=== PATIENT | male | born 1955 | race Caucasian/White ===

== ENCOUNTER 2017-04-30 06:23 | Observation (INO) | payer OTHER ==
[2017-04-30] MEDS ORDERED: ONDANSETRON HCL/PF 4 MG/ 2ML VIAL IVP ONE (06:48)
[2017-04-30] MEDS ORDERED: fentaNYL CITRATE/PF 100 MCG/ 2ML AMP IVP ONE ×2 (06:49→07:15)
[2017-04-30] MEDS ORDERED: 0.9 % SODIUM CHLORIDE 1,000 ML IV ONE ×2 (06:53→09:26)
[2017-04-30 06:54] LABS: BASOPHILS % 0.6 (0.0-1.5); EOSINOPHILS % 2.9 % (0.0-6.8); MEAN CORPUSCULAR HEMOGLOBIN 32.1 pg (28.0-34.0); MEAN CORPUSCULAR VOLUME 95.4 fl (80.0-100.0); MONOCYTES % 7.7 % (0.0-11.0)
[2017-04-30] MEDS ORDERED: 0.9 % SODIUM CHLORIDE 1,000 ML IV SCH (07:00)
[2017-04-30 07:07] LABS: eGFR (African) > 60; eGFR (Non-African) > 60
[2017-04-30] MEDS ORDERED: 0.9 % SODIUM CHLORIDE 50 ML IV ONE (07:37)
[2017-04-30] MEDS ORDERED: PROMETHAZINE HCL 25 MG/ML VIAL ONE (07:37)
[2017-04-30] MEDS ORDERED: PROMETHAZINE HCL 25 MG in 0.9 % SODIUM CHLORIDE 50 ML IV ONE (07:44)
[2017-04-30] MEDS ORDERED: MORPHINE SULFATE 2 MG/ML DISP.SYRIN IVP ONE (07:50)
[2017-04-30] MEDS ORDERED: MORPHINE SULFATE 2 MG/ML DISP.SYRIN ONE (07:51)
[2017-04-30] MEDS ORDERED: KETOROLAC TROMETHAMINE 30 MG/1ML VIAL ONE (07:56)
--- NOTE | 2017-04-30 08:02 | Diagnostic Imaging Report ---
[facility] [address] [facility] [address] [place], [place]. [address] Report Submission Date: Apr 30, 2017 7:51:21 AM CDT Patient Study Name: MANFRED CARRASQUILLO Date: Apr 30, 2017 7:26:32 AM CDT Modality Type: CT\SR Gender: M Description: CT ABD & PELVIS W/ CON : 53 Institution: [facility] Physician: ARMIDA WALL CT abdomen and pelvis with contrast Date of study: April 30, 2017. CLINICAL HISTORY: PT STATES PAIN IN RIGHT UPPER QUADRANT SINCE THIS MORNING. NAUSEA. STATES NO SURGICAL HISTORY. (Hx) / RUQ PAIN (DICOM Hx) TECHNIQUE: 1.3 mm contiguous axial images of the abdomen and pelvis with IV contrast. With; 90cc OMNIPAQUE FINDINGS: The lung bases are clear. Abdomen: A small hiatal hernia is noted. There are multiple hepatic cysts. Lateral left hepatic lobe cysts measure 2.2 cm x 3.5 cm. A right hepatic lobe cyst measures 1.3 cm. The pancreas and spleen are normal in appearance. The gallbladder is unremarkable. The kidneys enhance appropriately and symmetrically. There is mild right hydronephrosis and hydroureter. Right perinephric stranding is present. The aorta is normal in caliber. The small bowel is nondistended. There is no evidence of free air or free fluid. A fat containing umbilical hernia is noted. Pelvis: A 6 mm distal right ureteral calculus is present in the mid pelvis. Scattered colonic diverticulosis is evident. The bladder is normal. There is no evidence of free air or free fluid. The sigmoid colon and rectum are normal. The remaining pelvic structures are within normal limits and the bones of the pelvis are intact. A fat containing left inguinal hernia is noted. Slight disc bulging is present at L2/L3, L3/L4, L4/L5 and L5/S1. IMPRESSION: Mild right hydronephrosis and hydroureter with 6 mm distal right ureteral calculus in the mid pelvis. Hepatic cysts. Fat containing umbilical hernia. Electronically signed on Apr 30, 2017 7:51:21 AM CDT by: Marcela LOCKWOOD
[2017-04-30] MEDS ORDERED: KETOROLAC TROMETHAMINE 30 MG/1ML VIAL IVP ONE (08:20)
--- NOTE | 2017-04-30 08:29 | ED Physician Documentation ---
General Adult - HISTORIAN Historian: patient - HPI Stated Complaint: rt lower abd pain Chief Complaint: Abdominal Pain Onset: hours Timing: still present Severity: moderate Further Comments: yes (Pt is a 61 you male with RLQ abd pain that started yesterday. Pt has had n/v. No fever. Pt reports normal bm's and normal voids. PMHx inguinal hernia repair and prostate problems.) - ROS CONST: no problems EYES/ENT: none CVS/RESP: none GI/: abdominal pain (RLQ), vomiting, nausea MS/SKIN/LYMPH: none - PAST HX Past History: other (inguinal hernia repair, prostate problems.) Allergies/Adverse Reactions: Allergies Allergy/AdvReac Type Severity Reaction Status Date / Time No Known Drug Allergies Allergy Verified 04/30/17 06:38 - SOCIAL HX Smoking History: non-smoker - FAMILY HX Family History: No - VITAL SIGNS Vital Signs: Vital Signs Temp Pulse Resp BP Pulse Ox 97.6 F 61 16 172/93 99 04/30/17 06:24 04/30/17 06:24 04/30/17 06:24 04/30/17 06:24 04/30/17 06:24 - REVIEWED ASSESSMENTS Nursing Assessment Reviewed: Yes Vitals Reviewed: Yes Progress - Progress Progress: CT abd/pelvis w contrast: Mild right hydronephrosis and hydroureter with 6 mm distal right ureteral calculus in the mid pelvis. Pt received Fentanyl 50 mcg IV x 2 Zofran 4 mg IV 1 L NS IVF bolus, then 100 cc/hr. Morphine 2 mg IV Toradol 15 mg IV Admit to obs, Dr. Keen, for pain control. Will continue IVF, Morphine 2 mg q4h prn, Zofran 4 mg q 6 h, Flomax 0.4 mg po qd. Will not start abx until after U/ A is obtained. ED Results Lab/Radiology - Lab Results Lab Results: Lab Results 04/30/17 04/30/17 06:50 06:50 WBC 7.62 K/ul K/ul (4.00-12.00) RBC 4.77 M/ul M/ul (3.90-5.20) Hgb 15.3 g/dL g/dL (12.0-18.0) Hct 45.5 % % (37.0-53.0) MCV 95.4 fl fl (80.0-100.0) MCH 32.1 pg pg (28.0-34.0) MCHC 33.7 g/dL g/dL (30.0-36.0) RDW 12.8 % % (11.3-14.3) Plt Count 186 K/mm3 K/mm3 (130-400) Neut % (Auto) 65.3 % % (39.0-79.0) Lymph % (Auto) 20.9 % % (16.0-50.0) [place] % (Auto) 7.7 % % (0.0-11.0) Eos % (Auto) 2.9 % % (0.0-6.8) Baso % (Auto) 0.6 (0.0-1.5) Neut # 5.0 # k/uL # k/uL (1.4-7.7) Lymph # 1.6 # k/uL # k/uL (0.6-4.0) [place] # 0.6 # k/uL # k/uL (0.0-0.9) Eos # 0.2 # k/uL # k/uL (0.0-0.6) Baso # 0.0 # k/uL # k/uL (0.0-0.5) Reactive Lymphs % 2.6 % % (0.0-5.0) Reactive Lymphs # 0.2 # k/uL # k/uL (0.0-0.8) Sodium 140 mmol/L mmol/L (136-145) Potassium 4.0 mmol/L mmol/L (3.5-5.0) Chloride 108 mmol/L mmol/L (98-110) Carbon Dioxide 26 mmol/L mmol/L (20-32) BUN 17 mg/dL mg/dL (10-26) Creatinine 0.9 mg/dL mg/dL (0.4-1.5) Estimated Creat Clear 104 Est GFR ( Amer) > 60 (60 - ) Est GFR (Non-Af Amer) > 60 (60 - ) Glucose 146 mg/dL H mg/dL (70-99) Calcium 10.1 mg/dL mg/dL (8.5-10.5) Total Bilirubin 1.0 mg/dL mg/dL (0.2-1.2) AST 20 U/L U/L (0-41) ALT 16 U/L U/L (0-45) Alkaline Phosphatase 59 U/L U/L (46-116) Total Protein 7.0 g/dL g/dL (6.0-8.5) Albumin 4.5 g/dL g/dL (3.0-5.5) Amylase 62 U/L U/L (20-104) - Orders Orders: ED Orders Category Date Time Status CT ABD & PELVIS W/ CON Stat Exams 04/30/17 Ordered AMYLASE Routine Lab 04/30/17 06:50 Completed CBC/PLATELET/DIFF Routine Lab 04/30/17 06:50 Completed CMP Routine Lab 04/30/17 06:50 Completed URINALYSIS Routine Lab 04/30/17 Uncollected 0.9 % Sodium Chloride [Normal Saline] 1,000 ml Med 04/30/17 07:00 Ordered IV Q10H Ondansetron HCl/Pf [Zofran 4 mg/2 ml] Med 04/30/17 06:48 Discontinued 4 mg IVP NOW ONE fentaNYL CITRATE/PF [Duragesic] Med 04/30/17 06:49 Discontinued 50 mcg IVP NOW ONE General Adult Physical Exam - PHYSICAL EXAM GENERAL APPEARANCE: moderate distress EENT: pharynx normal NECK: normal inspection, supple RESPIRATORY: no resp distress, chest non-tender, breath sounds normal CVS: reg rate & rhythm, heart sounds normal ABDOMEN: soft, normal bowel sounds, no distension, tenderness (RLQ tenderness with guarding) BACK: normal inspection, CVA tenderness (R) SKIN: warm/dry, normal color EXTREMITIES: non-tender, normal range of motion, no evidence of injury NEURO: oriented X3, motor nml, sensation nml Discharge Clincal Impression: Kidney stone on right side Referrals: Art Keen MD [Primary Care Provider] - Condition: Stable Disposition: ADMITTED INPATIENT Decision to Admit: [id number] Decision Time: 08:05
[2017-04-30] MEDS ORDERED: TAMSULOSIN HCL 0.4 MG CAP.ER.24H PO ONE (09:00)
[2017-04-30] MEDS ORDERED: SALINE FLUSH 10 ML DISP.SYRIN IVF ONE (09:35)
[2017-04-30] MEDS: FINASTERIDE 5 MG TABLET PO SCH (09:37)
[2017-04-30] MEDS: 0.9 % SODIUM CHLORIDE 1,000 ML IV SCH ×4 (09:39→20:01)
[2017-04-30] MEDS: MORPHINE SULFATE 2 MG/ML DISP.SYRIN IVP PRN ×2 (12:37→16:11)
[2017-04-30 14:46] VITALS: BMI 26.0
[2017-04-30] MEDS: ONDANSETRON HCL/PF 4 MG/ 2ML VIAL IVP PRN (15:57)
[2017-04-30] MEDS ORDERED: MORPHINE SULFATE 2 MG/ML DISP.SYRIN IVP SCH (20:00)
[2017-05-01] MEDS ORDERED: SALINE FLUSH 10 ML DISP.SYRIN IVF ONE ×3 (01:54→04:42)
[2017-05-01] MEDS: MORPHINE SULFATE 2 MG/ML DISP.SYRIN IVP PRN ×4 (02:02→11:16)
[2017-05-01] MEDS: ONDANSETRON HCL/PF 4 MG/ 2ML VIAL IVP PRN ×2 (05:00→11:12)
[2017-05-01] MEDS: 0.9 % SODIUM CHLORIDE 1,000 ML IV SCH (05:15)
[2017-05-01 05:41] LABS: APPEARANCE,URINE CLEAR (CLEAR); COLOR,URINE AMBER (YELLOW)
[2017-05-01 05:42] LABS: OCCULT BLOOD,URINE 3+ (NEGATIVE); PH URINE 6.5 (5.0 - 8.0); UROBILINOGEN URINE 0.2 Eu (0.2-1.0)
[2017-05-01] MEDS ORDERED: MORPHINE SULFATE 2 MG/ML DISP.SYRIN IVP ONE (06:42)
[2017-05-01] MEDS ORDERED: KETOROLAC TROMETHAMINE 30 MG/1ML VIAL ONE (07:40)
[2017-05-01] MEDS ORDERED: KETOROLAC TROMETHAMINE 30 MG/1ML VIAL IVP ONE (07:42)
--- NOTE | 2017-05-01 07:59 | ED Physician Documentation ---
Abdominal Pain - HISTORIAN Historian: patient - HPI Stated Complaint: right abd pain Chief Complaint: Abdominal Pain Additonal Information: Who approximately 24 hours prior to admission develop some right lower quadrant pain with radiation into the right mid abdominal area. Patient denied any precipitating factors that he is aware of. Patient denies any modifying factors associated with the pain. Initially the pain did tend to wax and wane however through the night patient develop more intense pain associated with nausea. Patient subsequently came to the ED for evaluation. Patient denies any abdominal surgery. Leighton Mejia met with two days prior to admission and was normal. Patient denies any medication melena her hematemesis. Patient is not had a fever chills. Patient denies any urinary frequency urgency. Urinary color has been normal. Patient denies any previous gallbladder problems. Patient has a CT scan done in the ED which did show a 6 mm stone in the distal ureter. Patient was subsequently admitted to the hospital for further care evaluation and pain management. Onset: days ago (0900 yesterday) Context: other (no precipitating factor). denies: out of country travel Quality: pain, aching, cramping Associated Symptoms: fever, nausea, vomiting. denies: chills Exacerbated by: movements. denies: food Relieved by: nothing Further Comments: no - ROS CONST: no problems GI/: denies: constipation, black stools, bloody urine, bloody stools, dark urine, problems urinating CVS/RESP: none EYES/ENT: none MS/SKIN/LYMPH: none NEURO/PSYCH: none - SOCIAL HX Smoking History: non-smoker Alcohol Use: none Drug Use: none - FAMILY HX Family History: no significant history - PAST HX Past History: none Surgeries/Procedures: other (herni) Immunizations: influenza, zostavax. denies: pneumovax Home Medications: Ambulatory Orders Medication Instructions Recorded Tamsulosin HCl [Flomax] 0.4 mg PO [id number] #14 cap.er.24h 05/01/17 Hydrocodone/Acetaminophen 1 each PO SEE.INSTRUCTIONS u2 05/05/17 [Hydrocodon-Acetaminoph 2.5-325] Allergies/Adverse Reactions: Allergies Allergy/AdvReac Type Severity Reaction Status Date / Time No Known Drug Allergies Allergy Verified 04/30/17 06:38 - VITAL SIGNS Vital Signs: Vital Signs Temp Pulse Resp BP Pulse Ox 97.9 F 51 L 16 125/71 97 05/01/17 10:58 05/01/17 10:58 05/01/17 10:58 05/01/17 10:58 05/01/17 10:58 - REVIEWED ASSESSMENTS Nursing Assessment Reviewed: Yes Vitals Reviewed: Yes ED Results Lab/Radiology - Lab Results Lab Results: Lab Results 04/30/17 04/30/17 06:50 06:50 WBC 7.62 K/ul K/ul (4.00-12.00) RBC 4.77 M/ul M/ul (3.90-5.20) Hgb 15.3 g/dL g/dL (12.0-18.0) Hct 45.5 % % (37.0-53.0) MCV 95.4 fl fl (80.0-100.0) MCH 32.1 pg pg (28.0-34.0) MCHC 33.7 g/dL g/dL (30.0-36.0) RDW 12.8 % % (11.3-14.3) Plt Count 186 K/mm3 K/mm3 (130-400) Neut % (Auto) 65.3 % % (39.0-79.0) Lymph % (Auto) 20.9 % % (16.0-50.0) [place] % (Auto) 7.7 % % (0.0-11.0) Eos % (Auto) 2.9 % % (0.0-6.8) Baso % (Auto) 0.6 (0.0-1.5) Neut # 5.0 # k/uL # k/uL (1.4-7.7) Lymph # 1.6 # k/uL # k/uL (0.6-4.0) [place] # 0.6 # k/uL # k/uL (0.0-0.9) Eos # 0.2 # k/uL # k/uL (0.0-0.6) Baso # 0.0 # k/uL # k/uL (0.0-0.5) Reactive Lymphs % 2.6 % % (0.0-5.0) Reactive Lymphs # 0.2 # k/uL # k/uL (0.0-0.8) Sodium 140 mmol/L mmol/L (136-145) Potassium 4.0 mmol/L mmol/L (3.5-5.0) Chloride 108 mmol/L mmol/L (98-110) Carbon Dioxide 26 mmol/L mmol/L (20-32) BUN 17 mg/dL mg/dL (10-26) Creatinine 0.9 mg/dL mg/dL (0.4-1.5) Estimated Creat Clear 104 Est GFR ( Amer) > 60 (60 - ) Est GFR (Non-Af Amer) > 60 (60 - ) Glucose 146 mg/dL H mg/dL (70-99) Calcium 10.1 mg/dL mg/dL (8.5-10.5) Total Bilirubin 1.0 mg/dL mg/dL (0.2-1.2) AST 20 U/L U/L (0-41) ALT 16 U/L U/L (0-45) Alkaline Phosphatase 59 U/L U/L (46-116) Total Protein 7.0 g/dL g/dL (6.0-8.5) Albumin 4.5 g/dL g/dL (3.0-5.5) Amylase 62 U/L U/L (20-104) - Orders Orders: ED Orders Category Date Time Status Dr. Keen NOW Care 04/30/17 08:16 Ordered Observation NOW Care 04/30/17 08:16 Ordered Regular Diet 04/30/[address] ABD & PELVIS W/ CON Stat Exams 04/30/17 Completed AMYLASE Routine Lab 04/30/17 06:50 Completed CBC/PLATELET/DIFF Routine Lab 04/30/17 06:50 Completed CMP Routine Lab 04/30/17 06:50 Completed 0.9 % Sodium Chloride [Normal Saline] 1,000 ml Med 04/30/17 07:00 Discontinued IV Q10H 0.9 % Sodium Chloride [Normal Saline] 1,000 ml Med 04/30/17 08:30 Discontinued IV Q10H 0.9 % Sodium Chloride [Sodium Chloride] 50 ml Med 04/30/17 07:37 Discontinued IV .STK-MED Finasteride [Proscar] Med 04/30/17 09:00 Discontinued 5 mg PO DAILY Ketorolac Tromethamine [Toradol] Med 04/30/17 08:20 Discontinued 15 mg IVP NOW ONE Ketorolac Tromethamine [Toradol] Med 04/30/17 07:56 Discontinued 30 mg .ROUTE .STK-MED ONE Morphine Sulfate [DepoDur] Med 04/30/17 07:51 Discontinued 2 mg .ROUTE .STK-MED ONE Morphine Sulfate [DepoDur] Med 04/30/17 07:50 Discontinued 2 mg IVP NOW ONE Morphine Sulfate [DepoDur] Med 04/30/17 08:16 Discontinued 2 mg IVP Q4 PRN Ondansetron HCl/Pf [Zofran 4 mg/2 ml] Med 04/30/17 06:48 Discontinued 4 mg IVP NOW ONE Ondansetron HCl/Pf [Zofran 4 mg/2 ml] Med 04/30/17 08:16 Discontinued 4 mg IVP Q6H PRN Promethazine HCl [Phenergan] Med 04/30/17 07:37 Discontinued 25 mg .ROUTE .STK-MED ONE Promethazine HCl [Phenergan] 25 mg Med 04/30/17 07:44 Discontinued 0.9 % Sodium Chloride [Sodium Chloride] 50 ml IV NOW Tamsulosin HCl [Flomax] Med 04/30/17 09:00 Discontinued 0.4 mg PO DAILY ONE fentaNYL CITRATE/PF [Duragesic] Med 04/30/17 06:49 Discontinued 50 mcg IVP NOW ONE fentaNYL CITRATE/PF [Duragesic] Med 04/30/17 07:15 Discontinued 50 mcg IVP NOW ONE Transfer Routine Transfer 04/30/17 Completed Abdominal Pain Physical Exam - Physical Exam General Appearance: alert, mild distress, moderate distress (much better then earlier) EENT: ENT inspection normal, pharynx normal, no signs of dehydration NECK: normal inspection, thyroid normal, supple. No: lymphadenopathy, stiff neck RESPIRATORY: no resp distress, chest non-tender, breath sounds normal. No: wheezes, rales, rhonchi CVS: reg rate & rhythm, heart sounds normal, equal pulses, no murmur, no gallop ABDOMEN: soft, no organomegaly, no distension, tenderness (mild in the right lower and mid abd area), decreased BS. No: mass BACK: normal inspection, CVA tenderness (R) (mild) SKIN: warm/dry, normal color NEURO: oriented X3, CN's nml as tested, motor nml, sensation nml, mood/affect nml, cognition normal Vital Signs: Vital Signs Temp Pulse Resp BP Pulse Ox 97.9 F 51 L 16 125/71 97 05/01/17 10:58 05/01/17 10:58 05/01/17 10:58 05/01/17 10:58 05/01/17 10:58 Discharge Clincal Impression: Kidney stone on right side Home Medications: Ambulatory Orders Tamsulosin HCl [Flomax] 0.4 mg PO [id number] #14 cap.er.24h 05/01/17 Hydrocodone/Acetaminophen [Hydrocodon-Acetaminoph 2.5-325] 1 each PO SEE.INSTRUCTIONS u2 05/05/17 Condition: Stable Disposition: ADMITTED INPATIENT Decision to Admit: [id number] Date of Decison to Admit: 04/30/17 Decision Time: 08:00
--- NOTE | 2017-05-01 07:59 | History and Physical Report ---
History of Present Illnes - History of Present Illness Reason for Visit: abd psin History of Present Illness: Who approximately 24 hours prior to admission develop some right lower quadrant pain with radiation into the right mid abdominal area. Patient denied any precipitating factors that he is aware of. Patient denies any modifying factors associated with the pain. Initially the pain did tend to wax and wane however through the night patient develop more intense pain associated with nausea. Patient subsequently came to the ED for evaluation. Patient denies any abdominal surgery. Leighton Mejia met with two days prior to admission and was normal. Patient denies any medication melena her hematemesis. Patient is not had a fever chills. Patient denies any urinary frequency urgency. Urinary color has been normal. Patient denies any previous gallbladder problems. Patient has a CT scan done in the ED which did show a 6 mm stone in the distal ureter. Patient was subsequently admitted to the hospital for further care evaluation and pain management. - Past Medical History Cardiac: CAD - Past Surgical History Past Surgical History: Hernia Repair - Past Social History Smoke: No Alcohol: Occassional Drugs: None Lives: With Family Domestic Violence: Negative - Health Maintenance Health Maintenance: Cholesterol, Influenza Vaccine. denies: Pneumococcal Vaccine Influenza Vaccine: Current for this Influenza Season Pneumonia Vaccine: No Resuscitation Status: Resusciation Status Resuscitation Status Full Code - Unable to Obtain History Unable to Obtain: No Review of Systems - Review of Systems Constitutional: Sweats. negative: Fever, Chills, Weakness Eyes: negative: pain, vision change ENT: negative: Ear Pain, Ear Discharge, Nose Pain, Nose Discharge, Nose Congestion, Mouth Pain, Mouth Swelling, Throat Pain, Throat Swelling Respiratory: negative: Cough, Dry, Shortness of Breath, Hemoptysis, SOB with Excertion, Pleuritic Pain, Sputum, Wheezing Cardiovascular: negative: Chest Pain, Palpitations, Orthopnea, Paroxysmal Noc. Dyspnea, Edema, Light Headedness Gastrointestinal: negative: Nausea, Vomiting, Abdominal Pain, Diarrhea, Constipation, Melena, Hematochezia, Deferred, Other Genitourinary: negative: Dysuria, Frequency, Incontinence, Hematuria, Retention Musculoskeletal: negative: Neck Pain, Shoulder Pain, Back Pain Skin: negative: Rash, Lesions Neurological: negative: Weakness, Numbness, Incoordination, Change in Speech - Medications/Allergies Allergies/Adverse Reactions: Allergies Allergy/AdvReac Type Severity Reaction Status Date / Time No Known Drug Allergies Allergy Verified 04/30/17 06:38 Current Inpatient Medications: Current Inpatient Medications Finasteride (Proscar) 5 mg PO DAILY [facility] Last Admin: 04/30/17 09:37 Dose: 5 mg Sodium Chloride (Normal Saline) 1,000 mls @ 125 mls/hr IV Q10H SANDRA Last Admin: 05/01/17 05:15 Dose: 125 mls/hr Ketorolac Tromethamine (Toradol) 30 mg IVP NOW ONE Stop: 05/01/17 07:43 Morphine Sulfate (Depodur) 2 mg IVP Q2 PRN PRN Reason: PAIN Last Admin: 05/01/17 06:06 Dose: 2 mg Morphine Sulfate (Depodur) 1 mg IVP NOW ONE Stop: 05/01/17 06:43 Last Admin: 05/01/17 06:44 Dose: 1 mg Ondansetron HCl (Zofran 4 Mg/2 Ml) 4 mg IVP Q6H PRN PRN Reason: Nausea / Vomiting Stop: 05/06/17 23:59 Last Admin: 05/01/17 05:00 Dose: 4 mg Exam - Exam Vital Signs: Vital Signs (72 hours) 04/30/17 04/30/17 04/30/17 08:25 09:11 13:11 Temperature 98.2 F 98.2 F Pulse Rate [ 68 54 L 54 L Pulse ox] Respiratory 16 16 16 Rate Blood Pressure 107/66 [Left Arm] Blood Pressure 137/74 150/74 [Right Arm] O2 Sat by Pulse 96 98 98 Oximetry 04/30/17 04/30/17 04/30/17 16:58 17:00 19:29 Temperature 97.7 F 98.2 F Pulse Rate [ 54 L 67 53 L Pulse ox] Respiratory 16 18 20 Rate Blood Pressure 107/54 117/63 [Left Arm] Blood Pressure [Right Arm] O2 Sat by Pulse 97 96 Oximetry 04/30/17 05/01/17 05/01/17 20:09 01:00 05:00 Temperature 98.2 F 98.2 F Pulse Rate [ 81 55 L Pulse ox] Respiratory 20 20 20 Rate Blood Pressure 161/81 137/74 [Left Arm] Blood Pressure [Right Arm] O2 Sat by Pulse 95 91 L Oximetry 05/01/17 06:41 Temperature Pulse Rate [ Pulse ox] Respiratory Rate Blood Pressure 140/79 [Left Arm] Blood Pressure [Right Arm] O2 Sat by Pulse Oximetry General: Alert, Oriented to Person, Oriented to Place, Oriented to Time, Cooperative, Mild distress (feeling much better then earlier today) HEENT: Atraumatic, PERRLA, EOMI, Mouth Mucous membr. moist/[place], Nose Mucous membr. moist/[place] Neck: Normal Range of Motion Carotids: WNL Thyroid: WNL Lungs: Clear to auscultation, Normal air movement, Speaks full Sentences. No: Wheezes, Rales, Rhonchi Cardiovascular: Regular rate, Normal S1, Normal S2, No murmurs. No: Gallops Abdomen: Soft, No hepatospenomegaly, No masses, Other (mild tenderness in the right mid abd area, mild right CVA tenderness), Decreased Bowel Sounds. No: Distended Integumentary: Normal, [place], Warm, Dry Extremities: No clubbing, No cyanosis, No edema, Normal pulses, No tenderness/ swelling Neurological: Normal gait, Normal speech, Strength Equal Bilat, Normal tone, Sensation intact, Cranial nerves 3-12 NL, Reflexes 2+ Psych/Mental Status: Mental status NL, Mood NL, Appropriate Affect, Intact Judgment - Laboratory Results Laboratory Results: Laboratory Results 04/30/17 11:50 Urine Color Teena Urine Appearance Clear Urine pH 6.5 Ur Specific [place] 1.010 Urine Protein Trace Urine Ketones 1+ H Urine Occult Blood 3+ H Urine Nitrite Negative Urine Bilirubin Negative Urine Urobilinogen 0.2 Ur Leukocyte Esterase Negative Urine Glucose Negative Assessment/Plan - Assessment/Plan (1) Kidney stone on right side Status: Acute Current Visit: Yes Assessment: Patient has been started on Flomax. Is resting fairly comfortably at this time. Will continue with IV fluids. Continue with IV pain medication as needed. VTE Assessment - RISK FACTOR SCORE VTE RISK FACTOR SCORES: AGE OVER 60 YEARS - RISK VTE LOW RISK: SCORE OF 1 OR LESS (RISK PROXIMAL DVT 0.4%) NO PROPHYLAXIS NEEDED
[2017-05-01 09:33] LABS: BASOPHILS % 0.2 (0.0-1.5); EOSINOPHILS % 0.1 % (0.0-6.8); MEAN CORPUSCULAR HEMOGLOBIN 31.7 pg (28.0-34.0); MEAN CORPUSCULAR VOLUME 96.5 fl (80.0-100.0)
[2017-05-01] MEDS: FINASTERIDE 5 MG TABLET PO SCH (09:37)
[2017-05-01 10:04] LABS: eGFR (African) > 60; eGFR (Non-African) > 60
[2017-05-01 11:41] VITALS: BP 150/74
--- NOTE | 2017-05-01 13:41 | Diagnostic Imaging Report ---
[facility]MED SURG [facility] [address] [address] Report Submission Date: May 01, 2017 12:44:06 PM CDT Patient Study Name: MANFRED CARRASQUILLO Date: May 01, 2017 8:13:43 AM CDT Modality Type: US Gender: M Description: US RETROPERITONEAL : 53 Institution: [facility] Physician: [facility]G Examination: Ultrasound kidneys History: Right hydronephrosis Comparison exams: CT dated 30 April 2017 Findings: Right kidney measures 11.3 cm in length. Left kidney measures 11. 1 cm in length. No evidence for cortical mass bilaterally. Minimal prominence of the right intrarenal collecting system. No left hydronephrosis. No identifiable stone. Left ureteral jets visualized. No right-sided ureteral jet. Impression: Minimal prominence of the right intrarenal collecting system without visualization of a right-sided ureteral jet. Findings suggest right ureteral calcification/stone though a stone is not visualized.. Follow is warranted. Electronically signed on May 01, 2017 12:44:06 PM CDT by: Kwadwo LOCKWOOD
--- NOTE | 2017-07-25 18:01 | Discharge Summary ---
Discharge Summary - Discharge Sumary History of Present Illness: Who approximately 24 hours prior to admission develop some right lower quadrant pain with radiation into the right mid abdominal area. Patient denied any precipitating factors that he is aware of. Patient denies any modifying factors associated with the pain. Initially the pain did tend to wax and wane however through the night patient develop more intense pain associated with nausea. Patient subsequently came to the ED for evaluation. Patient denies any abdominal surgery. Leighton Mejia met with two days prior to admission and was normal. Patient denies any medication melena her hematemesis. Patient is not had a fever chills. Patient denies any urinary frequency urgency. Urinary color has been normal. Patient denies any previous gallbladder problems. Patient has a CT scan done in the ED which did show a 6 mm stone in the distal ureter. Patient was subsequently admitted to the hospital for further care evaluation and pain management. Condition at Discharge: Stable Home Medications: Ambulatory Orders Medication Instructions Recorded Tamsulosin HCl [Flomax] 0.4 mg PO [id number] #14 cap.er.24h 05/01/17 Hydrocodone/Acetaminophen 1 each PO SEE.INSTRUCTIONS u2 05/05/17 [Hydrocodon-Acetaminoph 2.5-325] Consultations this Visit: None Procedures this Visit: None Allergies/Adverse Reactions: Allergies Allergy/AdvReac Type Severity Reaction Status Date / Time No Known Drug Allergies Allergy Verified 04/30/17 06:38 Discharge Summary: White male who is found to have a 6 mm right distal ureter kidney stone. Patient was admitted to the hospital for further pain management. Patient continued to have waxing and waning of pain with nausea and vomiting. Urologist was subsequently consulted and patient was transferred for further definitive treatment and care of his kidney stone. Patient was transferred in stable condition.
== END 2017-05-01 11:40 | disposition short-term general hospital (02) ==
LOC: ED 06:23 → SOUTH 08:24
PROVIDERS: ADMIT Family Medicine; ATTEND Family Medicine
DX: N20.0 Calculus of kidney (principal)
CPT/HCPCS: 36415; 74177; 76770; 80048; 80053; 81002; 82150; 85025; G0378; J1885; J2270; J2405; J2550; J3010; J7030; Q9966; 96361; 96374; 96375; 96376; 99284; S1016

== ENCOUNTER 2017-05-05 09:50 | Outpatient (CLI) | payer OTHER ==
[2017-05-05 10:05] LABS: BASOPHILS % 1.5 (0.0-1.5); EOSINOPHILS % 3.6 % (0.0-6.8); MEAN CORPUSCULAR HEMOGLOBIN 32.4 pg (28.0-34.0); MONOCYTES % 7.2 % (0.0-11.0)
[2017-05-05 10:31] LABS: eGFR (African) > 60; eGFR (Non-African) > 60
== END 2017-05-05 10:00 ==
LOC: LAB 09:50
PROVIDERS: ATTEND Physician Assistant
DX: M79.89 Other specified soft tissue disorders (principal)
CPT/HCPCS: 36415; 80053; 85025

== ENCOUNTER 2017-05-15 10:16 | Outpatient (CLI) | payer OTHER | END 2017-05-15 10:17 | LOC: LABRHC 10:16 | PROVIDERS: ATTEND Family Medicine | DX: N39.0 Urinary tract infection, site not specified (principal) | CPT/HCPCS: 87086 ==

== ENCOUNTER 2018-03-30 07:43 | Outpatient (CLI) | payer OTHER ==
[2018-03-30 08:29] LABS: eGFR (African) > 60; eGFR (Non-African) > 60
== END 2018-03-30 12:30 ==
LOC: LAB 07:43
PROVIDERS: ATTEND Family Medicine
DX: E78.5 Hyperlipidemia, unspecified (principal); Z11.59 Encounter for screening for other viral diseases; G47.00 Insomnia, unspecified
CPT/HCPCS: 36415; 80053; 80061; 86803

== ENCOUNTER 2019-10-21 11:43 | Outpatient (CLI) | payer MEDICARE, OTHER ==
[2019-10-21 12:50] LABS: eGFR (Non-African) > 60
[2019-10-21 12:51] LABS: MAGNESIUM 1.9 mIU/l (1.6-2.3)
== END 2019-10-21 11:48 ==
LOC: LAB 11:43
PROVIDERS: ATTEND Internal Medicine Endocrinology, Diabetes & Metabolism
DX: E21.3 Hyperparathyroidism, unspecified (principal); M81.0 Age-related osteoporosis without current pathological fracture
CPT/HCPCS: 36415; 80069; 81050; 82340; 82570; 83735